=== PATIENT | female | born 1980 | race Caucasian/White ===

== ENCOUNTER 2023-05-27 11:19 | Day surgery (SDC) | payer OTHER, SELFPAY ==
[2023-05-27] VITALS (7 sets, daily range): BP systolic 116–137; BP diastolic 56–71; BMI 43.8
== END 2023-05-27 12:58 | disposition home or self-care (01) ==
LOC: SDS 11:19
PROVIDERS: ATTENDING PHYSICIAN Internal Medicine Gastroenterology
DX: K21.9 Gastro-esophageal reflux disease without esophagitis (principal); R12 Heartburn; R11.2 Nausea with vomiting, unspecified; Z98.84 Bariatric surgery status
CPT/HCPCS: 43235

== ENCOUNTER → 2023-06-01 09:51 | Outpatient (REF) | payer OTHER, SELFPAY | LOC: RAD 09:51 | PROVIDERS: ATTENDING PHYSICIAN Internal Medicine Gastroenterology; FAMILY PHYSICIAN Family Medicine | DX: K21.00 Gastro-esophageal reflux disease with esophagitis, without bleeding (principal) | CPT/HCPCS: 74246 ==

== ENCOUNTER → 2023-08-19 07:41 | Outpatient (REF) | payer OTHER, SELFPAY | LOC: RAD 07:41 | PROVIDERS: FAMILY PHYSICIAN Family Medicine | DX: Z98.84 Bariatric surgery status (principal); K30 Functional dyspepsia | CPT/HCPCS: 78264; A9541 ==